=== PATIENT | female | born 1960 | race Hispanic/Latino ===

== ENCOUNTER 2022-10-10 17:18 | Observation (INO) | payer MEDICARE, OTHER ==
[~2022-10-10] VITALS: Ht 162.6 cm; Wt 63.5 kg
[2022-10-10] MEDS ORDERED: NITROGLYCERIN 0.4 MG SUBL ONE (17:41)
[2022-10-10] MEDS ORDERED: NITROGLYCERIN 2% OINT 1 GM PKT ONE (17:42)
[2022-10-10] MEDS ORDERED: FENTANYL CITRATE/PF 100MCG/2 ML INJ ONE (17:42)
[2022-10-10] MEDS ORDERED: NITROGLYCERIN 2% OINT 1 GM PKT TOP ONE (17:45)
[2022-10-10] MEDS ORDERED: NITROGLYCERIN 0.4 MG SUBL SL ONE (17:45)
[2022-10-10] MEDS ORDERED: ASPIRIN 325 MG TAB PO ONE (17:45)
[2022-10-10] MEDS ORDERED: ASPIRIN 325 MG TAB ONE (17:55)
[2022-10-10] MEDS ORDERED: SODIUM CHLORIDE FLUSH 10 ML SYR INJ PRN (18:30)
[2022-10-10] MEDS ORDERED: KETOROLAC TROMETHAMINE 30 MG/ML VIAL IV STA (18:48)
[2022-10-10 19:57] VITALS: BP 123/86
[2022-10-10 20:00] VITALS: BP 123/86
[2022-10-10] MEDS ORDERED: HYDROCODON-ACE1 EAC9 (21:55)
[2022-10-10] MEDS ORDERED: MELOXICAM7.5 MG PO (21:57)
[2022-10-10] MEDS ORDERED: ONDANSETRON HCL INJ 2MG/ML 2ML 2 MG/ML VIAL IV PRN (23:30)
[2022-10-10] MEDS ORDERED: ACETAMINOPHEN 325 MG TAB PO PRN (23:30)
[2022-10-11] VITALS (7 sets, daily range): BP systolic 104–147; BP diastolic 61–89
[2022-10-11] MEDS ORDERED: NITROGLYCERIN 2% OINT 1 GM PKT TOP SCH
[2022-10-11] MEDS: HYDROCODONE/APAP 10MG-325MG TAB PO PRN ×5 (00:58→23:57)
[2022-10-11] MEDS ORDERED: KETOROLAC TROMETHAMINE 30 MG/ML VIAL IV PRN (01:00)
[2022-10-11 07:08] LABS: CREATINE KINASE 55 IU/L (29-168)
[2022-10-11 07:38] LABS: CHOL/HDL RATIO 3.2 (3.0-3.6)
[2022-10-11] MEDS ORDERED: ASPIRIN 81 MG CHEW TAB PO SCH (09:00)
[2022-10-11] MEDS: PANTOPRAZOLE SOD 40 MG TABEC PO SCH (10:28)
[2022-10-11] MEDS: ASPIRIN 81 MG ENTERIC COATED PO SCH (10:28)
[2022-10-11 16:01] LABS: CREATINE KINASE 57 IU/L (29-168)
[2022-10-12] VITALS: BP 115/72
[2022-10-12 06:08] VITALS: BP 100/63
[2022-10-12] MEDS: HYDROCODONE/APAP 10MG-325MG TAB PO PRN (06:41)
[2022-10-12 08:59] VITALS: BP 107/70
[2022-10-12] MEDS: PANTOPRAZOLE SOD 40 MG TABEC PO SCH ×2 (10:01→10:12)
[2022-10-12] MEDS: ASPIRIN 81 MG ENTERIC COATED PO SCH ×2 (10:02→10:12)
[2022-10-12 10:20] VITALS: BP 107/70
== END 2022-10-12 11:23 | disposition home or self-care (01) ==
LOC: FSED 17:44 → ERHOLD 18:34 → MED/SURG 20:29
PROVIDERS: ADMIT Internal Medicine; ATTEND Internal Medicine
DX: R07.89 Other chest pain (principal); M54.9 Dorsalgia, unspecified; B18.2 Chronic viral hepatitis C; Z20.822 Contact with and (suspected) exposure to COVID-19; Z88.0 Allergy status to penicillin; Z91.041 Radiographic dye allergy status; R91.8 Other nonspecific abnormal finding of lung field
CPT/HCPCS: 36415; 71250; 78580; 80053; 80061; 82550; 82553; 84484; 85025; 85379; 93005; 93306; 94799; 99284; A9540; G0378; J1885

== ENCOUNTER 2022-12-14 13:35 | Emergency (ER) | payer OTHER, MEDICARE ==
[~2022-12-14] VITALS: Ht 157.5 cm; Wt 60.9 kg
[~2022-12-14 13:35] MED LIST: HYDROCODON-ACE1 EAC9; MELOXICAM7.5 MG PO
[2022-12-14 15:02] VITALS: O2SAT 99
[2022-12-14] MEDS ORDERED: IBUPROFEN 600 MG TAB PO STA (15:03)
[2022-12-14] MEDS ORDERED: IBUPROFEN 600 MG TAB ONE (15:07)
[2022-12-14] MEDS ORDERED: MELOXICAM7.5 MG PO (15:15)
== END 2022-12-14 15:21 | disposition home or self-care (01) ==
LOC: FSED 13:41
DX: S22.42XA Multiple fractures of ribs, left side, initial encounter for closed fracture (principal); M54.50 Low back pain, unspecified; N20.0 Calculus of kidney; I48.91 Unspecified atrial fibrillation; B19.20 Unspecified viral hepatitis C without hepatic coma; M54.9 Dorsalgia, unspecified; G89.29 Other chronic pain
CPT/HCPCS: 71250; 74176; 80048; 80076; 81003; 85025; 99284